=== PATIENT | male | born 1950 | race Caucasian/White ===

== ENCOUNTER 2016-08-04 16:28 | Emergency (ER) | payer BC ==
[~2016-08-04] VITALS: Ht 180.3 cm; Wt 111.4 kg
[2016-08-04 16:30] VITALS: BP 151/88; TEMP 97.9
[2016-08-04] MEDS ORDERED: OMEGA-3 1000 MG1 CAP PO (17:46)
[2016-08-04] MEDS ORDERED: BLOOD PRESSURE (17:46)
[2016-08-04] MEDS ORDERED: CEPHALEXIN500 M1 PO (19:13)
[2016-08-04 19:23] VITALS: PULSE 76
== END 2016-08-04 19:23 | disposition home or self-care (01) ==
LOC: COL.ER 16:28 → EDBD 16:39 → COL.ER 16:39
DX: S61.210A Laceration without foreign body of right index finger without damage to nail, initial encounter (principal); W45.8XXA Other foreign body or object entering through skin, initial encounter; W22.8XXA Striking against or struck by other objects, initial encounter

== ENCOUNTER 2016-08-11 09:38 | Emergency (ER) | payer BC ==
[~2016-08-11] VITALS: Ht 180.3 cm; Wt 109.1 kg
[~2016-08-11 09:38] MED LIST: BLOOD PRESSURE; CEPHALEXIN500 M1 PO; OMEGA-3 1000 MG1 CAP PO
[2016-08-11 09:57] VITALS: BP 160/92; PULSE 69; TEMP 98
== END 2016-08-11 10:43 | disposition home or self-care (01) ==
LOC: COL.ER 09:38
DX: S61.210D Laceration without foreign body of right index finger without damage to nail, subsequent encounter (principal); W45.8XXD Other foreign body or object entering through skin, subsequent encounter; I10 Essential (primary) hypertension

== ENCOUNTER → 2016-08-15 | Outpatient (CLI) | payer BC ==
[2016-08-15 09:21] VITALS: BP 125/72; PULSE 79; TEMP 98
== END ==
LOC: COL.ER 09:15
DX: Z48.02 Encounter for removal of sutures (principal)

== ENCOUNTER → 2019-04-07 | Outpatient (CLI) | payer MEDICARE, BC | LOC: COL.RAD 09:46 | DX: R51 Headache (principal) ==

== ENCOUNTER 2021-10-13 21:50 | Emergency (ER) | payer MEDICARE, BC ==
[~2021-10-13] VITALS: Ht 182.9 cm; Wt 118.2 kg
[2021-10-13 22:13] VITALS: TEMP 101.9
[2021-10-13 23:01] LABS: BASO # 0.1 K/mm3 (0.0-0.2); BASO % 0.6 % (0.0-2.0); EOS # 0.3 K/mm3 (0.0-0.7); EOS % 2.1 % (0.0-4.0); GRAN # 10.3 K/mm3 (1.4-6.5); GRAN % 80.8 % (42.2-75.2); HEMOGLOBIN 14.1 g/dl (13.5-18.0); LYMPH # 0.9 K/mm3 (1.2-3.4); LYMPH % 7.4 % (20.0-51.0); MEAN CELL VOLUME 90 fl (80.0-100.0); MEAN CORPUSCULAR HEMOGLOBIN 30 pg (27-31); MEAN CORPUSCULAR HGB CONC 34 g/dl (33.0-37.0); MONO # 1.1 K/mm3 (0.1-0.6); MONO % 8.7 % (1.7-9.3); PLATELET COUNT 300 K/mm3 (130-400); RED BLOOD COUNT 4.68 M/mm3 (4.20-5.60)
[2021-10-13 23:17] LABS: ALBUMIN 3.8 gm/dL (3.4-4.8); CREATININE, serum 1.03 mg/dL (0.72-1.25); POTASSIUM 4.1 mmol/L (3.5-4.5)
[2021-10-13 23:23] LABS: TROPONIN-I 0.013 ng/mL (0.00-0.033)
[2021-10-14] MEDS ORDERED: TESSALON P100 MG/CAP PO (00:29)
[2021-10-14 01:00] VITALS: BP 111/75; PULSE 90
== END 2021-10-14 01:00 | disposition home or self-care (01) ==
LOC: COL.ER 21:50
PROVIDERS: Nurse Practitioner
DX: U07.1 COVID-19 (principal); Z28.310 Unvaccinated for COVID-19

== ENCOUNTER 2021-10-19 13:55 | Inpatient (IN) | payer MEDICARE, BC ==
[~2021-10-19] VITALS: Ht 180.3 cm; Wt 121.3 kg
[~2021-10-19 13:55] MED LIST changes: +TESSALON P100 MG/CAP PO
[2021-10-19 14:30] LABS: BASO # 0.1 K/mm3 (0.0-0.2); BASO % 0.5 % (0.0-2.0); EOS # 0.3 K/mm3 (0.0-0.7); GRAN # 10.2 K/mm3 (1.4-6.5); GRAN % 79.6 % (42.2-75.2); HEMATOCRIT 37.7 % (42.0-52.0); HEMOGLOBIN 12.7 g/dl (13.5-18.0); LYMPH % 7.6 % (20.0-51.0); MEAN CELL VOLUME 88 fl (80.0-100.0); MEAN CORPUSCULAR HEMOGLOBIN 30 pg (27-31); MEAN CORPUSCULAR HGB CONC 34 g/dl (33.0-37.0); MEAN PLATELET VOLUME 10.3 fl (7.4-10.4); MONO # 1.2 K/mm3 (0.1-0.6); MONO % 9.4 % (1.7-9.3); PLATELET COUNT 407 K/mm3 (130-400); RED BLOOD COUNT 4.28 M/mm3 (4.20-5.60); REDCELL DISTRIBUTION WIDTH-CV 13.3 % (11.5-14.5)
[2021-10-19 14:49] LABS: ALBUMIN 2.7 gm/dL (3.4-4.8); BILIRUBIN,TOTAL 1.7 mg/dL (0.2-1.2); CREATININE, serum 1.14 mg/dL (0.72-1.25); POTASSIUM 3.6 mmol/L (3.5-4.5); TOTAL PROTEIN 6.9 gm/dL (6.2-8.1)
[2021-10-19 20:00] VITALS: BP 146/84; PULSE 84; TEMP 97.5
[2021-10-19 21:20] VITALS: BP 134/59; PULSE 85; TEMP 98.2
[2021-10-20 00:09] VITALS: BP 129/76; PULSE 82; TEMP 98.1
[2021-10-20 03:41] VITALS: BP 137/72; PULSE 79; TEMP 97.7
--- NOTE | 2021-10-20 05:00 | NUR ---
ASSESSMENT COMPLETE FOR THIS SHIFT. PT RESTING IN BED TALKING TO FAMILY OVER THE PHONE. PT COMPLAINED OF A BAD COUGH. PT REQUESTED ROBITUSSIN. HOSPITALIST CALLED WITH REQUEST. ROBITUSSIN ORDERED AND GIVEN. PT FELT THE ROBITUSSIN HELPED. PT DENIED CHEST PAIN, PALPITATIONS, N,V,D, SOB OR DIZZINESS. PT EXPRESSED NO OTHER NEEDS AT THIS TIME. CALL LIGHT WITHIN REACH.
[2021-10-20 08:00] VITALS: BP 129/59; PULSE 81; TEMP 98.2
[2021-10-20 11:30] VITALS: BP 132/62; PULSE 80; TEMP 98
--- NOTE | 2021-10-20 13:47 | NUR ---
JUST BACK FROM BATHROOM. 85% SPO2. DIDNT WEAR O2 TO BATHROOM
[2021-10-20 16:00] VITALS: BP 123/54; PULSE 79; TEMP 98.7
--- NOTE | 2021-10-20 17:38 | NUR ---
PATIENT ARRIVED TO FLOOR FROM ICU DEPT. CURRENTLY ON 3L O2 NC, SATS 80-85%. FAMILY IS STILL DISCUSSING TRANSITION TO COMFORT MEASURES. SOME HAVE BEEN INITIATED. PATIENT WILL AROUSE WHEN NAME IS SPOKEN. NOT ORIENTED FULLY. NO COMPLAINTS OF PAIN AT THIS TIME. REILLY IN PLACE. POOR APPETITE. POOR FLUID INTAKE. LOCK CORNER MACHINE OPERATOR WORKING WITH PATIENT AND FAMILY ON DECISON MAKING PROGNOSIS IS TERMINAL. WILL MONITOR PATIENT AND KEEP HIM COMFORTABLE.
[2021-10-20 20:28] VITALS: BP 125/55; PULSE 79; TEMP 98.2
[2021-10-21 00:16] VITALS: BP 115/60; PULSE 68; TEMP 98.2
[2021-10-21 04:11] VITALS: BP 110/47; PULSE 69; TEMP 98.5
--- NOTE | 2021-10-21 04:48 | NUR ---
ASSESSMENT COMPLETE FOR THIS SHIFT. PT RESTING IN BED ON THE PHONE WITH HIS . PT DENIED GENERAL PAIN, CHEST PAIN, PALPITATIONS, N,V,D, SOB OR DIZZINESS. AT PT'S 0400HRS VS, PT'S O2 SATS WERE FOUND TO BE 86%. PT TOLD TO TAKE SOME DEEP BREATHS. PT ABOVE 90% AFTER SEVERAL MINUTES. PT PLACED ON 3L O2 (FROM 2L). RT CALLED. RT CAME UP TO ASSESS PT. PT'S O2 UP TO 96%. WILL CONTINUE TO MONITOR. PT EXPRESSED NO OTHER NEEDS AT THIS TIME. CALL LIGHT WITHIN REACH.
[2021-10-21 06:26] LABS: HEMOGLOBIN 11.2 g/dl (13.5-18.0); MEAN CELL VOLUME 91 fl (80.0-100.0); MEAN CORPUSCULAR HEMOGLOBIN 30 pg (27-31); MEAN CORPUSCULAR HGB CONC 33 g/dl (33.0-37.0); MEAN PLATELET VOLUME 10.8 fl (7.4-10.4); PLATELET COUNT 406 K/mm3 (130-400); REDCELL DISTRIBUTION WIDTH-CV 13.2 % (11.5-14.5)
[2021-10-21 06:41] LABS: ALBUMIN 2.4 gm/dL (3.4-4.8); BILIRUBIN,TOTAL 0.5 mg/dL (0.2-1.2); C-REACTIVE PROTEIN 10.35 mg/dL (0.00-0.50); CALCIUM 8.9 mg/dL (8.4-10.2); POTASSIUM 3.6 mmol/L (3.5-4.5)
[2021-10-21 06:46] LABS: HEMATOCRIT 33.8 % (42.0-52.0)
[2021-10-21 07:00] VITALS: BP 132/87; PULSE 82; TEMP 98.9
--- NOTE | 2021-10-21 07:14 | NUR ---
INCREASE IN WBC AND CRP THIS MORNING. INCREASE TO 3L IN O2 DEMANDS. WILL COMMUNICATE TO HOSPITALIST DURING ROUNDS. REMAINED AFEBRILE THROUGH THE NIGHT. STILL CONTINUES TO HAVE MODERATE COUGH, PATIENT STATES ROBITUSSIN HELPS A LITTLE BIT. COUGH IS MORE DRY THAN PRODUCTIVE. VITALS WNL AT THIS TIME.
[2021-10-21 07:39] LABS: BAND 4 % (0-10); LYMPHOCYTE 11 % (20.0-51.0); METAMYELOCYTE 1 % (0-0); NEUTROPHILS 82 % (42.0-75.2); PLATELET ESTIMATE INCREASED (NORMAL)
--- NOTE | 2021-10-21 10:56 | NUR ---
Supervisor Lending Activities contacted patient by room phone to discuss discharge planning. Patient lives in [place] with his significant other, Shoshana (ph#[phone]) and sees Dr. Woods for primary care. Patient obtains medications from [facility] with no difficulties and does not use any DME. Patient does not use home oxygen, but is currently on 3 liters. SW will continue to monitor. SW is independent with ADLS and plans to return home at time of discharge. PT recommending home. SW asked patient if he had completed DPOA-HC and patient stated "not yet". SW attempted to identify legal next of kin. Patient advised she is not , has no children, and his parents are . When asked about siblings, patient stated he doesn't care to list them. Discharge Plan: Home, may need home oxygen.
[2021-10-21 11:50] VITALS: BP 121/68; PULSE 80; TEMP 98.6
[2021-10-21 20:15] VITALS: BP 148/62; PULSE 89; TEMP 98.5
[2021-10-22 00:24] VITALS: BP 129/57; PULSE 80; TEMP 98.4
[2021-10-22 04:50] VITALS: BP 149/83; PULSE 84; TEMP 99.9
--- NOTE | 2021-10-22 06:05 | NUR ---
ASSESSMENT COMPLETE FOR THIS SHIFT. PT SITTING ON THE SIDE OF THE BED, TALKING ON THE PHONE WITH HIS , WHILE WATCHING THE FIRE WORKS. PT DENIED GENERAL PAIN, CHEST PAIN, PALPITATIONS, N,V,D, SOB OR DIZZINESS. PT'S IV RESTARTED TO LEFT HAND. PT HAD A LOW GRADE FEVER (99.9). PT GIVEN TYLENOL FOR FEVER. PT EXPRESSED NO OTHER NEEDS AT THIS TIME. CALL LIGHT WITHIN REACH.
[2021-10-22 06:34] LABS: CALCIUM 8.3 mg/dL (8.4-10.2); CREATININE, serum 0.96 mg/dL (0.72-1.25); POTASSIUM 3.5 mmol/L (3.5-4.5)
[2021-10-22 06:38] LABS: HEMOGLOBIN 11.8 g/dl (13.5-18.0); MEAN CELL VOLUME 90 fl (80.0-100.0); MEAN CORPUSCULAR HEMOGLOBIN 30 pg (27-31); MEAN CORPUSCULAR HGB CONC 34 g/dl (33.0-37.0); MEAN PLATELET VOLUME 10.5 fl (7.4-10.4); PLATELET COUNT 437 K/mm3 (130-400); REDCELL DISTRIBUTION WIDTH-CV 13.5 % (11.5-14.5)
[2021-10-22 06:41] LABS: HEMATOCRIT 34.9 % (42.0-52.0)
[2021-10-22 08:00] VITALS: BP 145/55; PULSE 84; TEMP 99.2
[2021-10-22 08:19] LABS: BAND 2 % (0-10); EOSINOPHIL 3 % (0-4); LYMPHOCYTE 10 % (20.0-51.0); METAMYELOCYTE 1 % (0-0); NEUTROPHILS 81 % (42.0-75.2)
[2021-10-22 08:21] LABS: PLATELET ESTIMATE NORMAL (NORMAL)
--- NOTE | 2021-10-22 17:47 | NUR ---
PATIENT CONTINUES TO REQUIRE 2-3L O2 VIA NC. DOES HAVE DYSPNEA WITH EXERTION. CONTINUES ON ANTIBIOTICS AND ANTIBODY TX PER ORDERS. TOLERATING ALL MEDS WELL. GOOD APPETITE AND FLUID INTAKE. INDEPENDENT IN ROOM, ENCOURAGED TO ASK FOR ASSIST. CONTINENT OF B/B. CAN DO ADLS ON OWN. AFEBRILE. SATS 92-96% ON O2.
[2021-10-22 20:58] VITALS: BP 148/61; PULSE 79; TEMP 98
[2021-10-23 00:13] VITALS: BP 123/57; PULSE 71; TEMP 98.5
--- NOTE | 2021-10-23 01:50 | NUR ---
PT LAYING IN BED RESTING QUIETLY. PT DENIES ANY PAIN AT THIS TIME. PT ENDORSES NON-PRODUCTIVE NAGGED COUGH.
[2021-10-23 04:33] VITALS: BP 110/63; PULSE 86; TEMP 98.4
[2021-10-23 06:57] LABS: ALBUMIN 2.4 gm/dL (3.4-4.8); BILIRUBIN,DIRECT 0.3 mg/dL (0.0-0.5); BILIRUBIN,TOTAL 0.5 mg/dL (0.2-1.2); TOTAL PROTEIN 5.8 gm/dL (6.2-8.1)
[2021-10-23 08:03] VITALS: BP 151/55; PULSE 88; TEMP 98.3
--- NOTE | 2021-10-23 11:38 | NUR ---
Scheduled medications given. Shift assessment preformed. Patient currently requiring 1L of O2 via nasal cannula. Dyspnea upon exertion noted. Patient denies any pain, discomfort, SOA, or further needs at this time. Call light in reach. VSS. Patient A&O.
[2021-10-23 12:02] VITALS: BP 103/47; PULSE 80; TEMP 97.6
[2021-10-23 16:46] VITALS: BP 154/60; PULSE 80; TEMP 98.3
--- NOTE | 2021-10-23 19:06 | NUR ---
Patient has had an uneventful day. Patient currently requiring 1L of O2 via nasal cannula. Dyspnea upon exertion noted. Patient denies any pain, discomfort, SOA, or further needs at this time. Call light in reach.
[2021-10-23 19:39] VITALS: BP 146/70; PULSE 81; TEMP 98.3
[2021-10-24 00:07] VITALS: BP 119/64; PULSE 76; TEMP 98.2
--- NOTE | 2021-10-24 01:13 | NUR ---
PATIENT ADMITED TO THE UNIT WAS ACOMPANIED BY ER staff, with c/o malaise, pt refusing to be attended to in the unit,stats she wants to be seen only by the doctor,refuses TELE, REFUSES TO ANSWER QUESTIONS and to be assessed by nurses. physcian christian education director notified .
[2021-10-24 03:41] VITALS: BP 147/58; PULSE 73; TEMP 98.2
[2021-10-24 03:51] LABS: COLLECTION METHOD CLEAN CATCH
[2021-10-24 03:59] LABS: PH 6 (5-8); SQUAMOUS EPITHELIAL None Seen /hpf (0-10); URINE APPEARANCE Clear (CLEAR/HAZY); URINE BACTERIA None Seen /hpf (NONE SEEN); URINE BILIRUBIN Negative (NEGATIVE); URINE COLOR Yellow (YELLOW); URINE GLUCOSE Negative (NEGATIVE); URINE KETONE Negative (NEGATIVE); URINE NITRATE Negative (NEGATIVE); URINE PROTEIN(semi-quant) Negative (NEGATIVE); URINE RBC None Seen /hpf (0-2); URINE UROBILINOGEN Negative (NEGATIVE)
[2021-10-24 04:00] LABS: URINE BLOOD Negative (NEGATIVE); URINE LEUKOCYTE ESTERASE Negative (NEGATIVE)
--- NOTE | 2021-10-24 06:05 | NUR ---
PATIENT NIGHT WAS OKAY, ORIENT AND ALERT X4,VSS, ON O2 VIA NC,PT HAS A DRY COUGH,SPUTUM COLECTION PENDING., DUE MEDICATION ADMINISTERED.DENIES COMPLAINTS.
[2021-10-24 06:45] LABS: HEMOGLOBIN 11.5 g/dl (13.5-18.0); MEAN CELL VOLUME 90 fl (80.0-100.0); MEAN CORPUSCULAR HEMOGLOBIN 30 pg (27-31); MEAN CORPUSCULAR HGB CONC 33 g/dl (33.0-37.0); MEAN PLATELET VOLUME 10.4 fl (7.4-10.4); PLATELET COUNT 445 K/mm3 (130-400); RED BLOOD COUNT 3.85 M/mm3 (4.20-5.60); REDCELL DISTRIBUTION WIDTH-CV 13.4 % (11.5-14.5)
[2021-10-24 06:47] LABS: HEMATOCRIT 34.8 % (42.0-52.0)
[2021-10-24 07:11] LABS: ALBUMIN 2.4 gm/dL (3.4-4.8); BILIRUBIN,DIRECT 0.2 mg/dL (0.0-0.5); BILIRUBIN,TOTAL 0.4 mg/dL (0.2-1.2); CALCIUM 8.4 mg/dL (8.4-10.2); CREATININE, serum 0.83 mg/dL (0.72-1.25); POTASSIUM 3.9 mmol/L (3.5-4.5); TOTAL PROTEIN 5.3 gm/dL (6.2-8.1)
[2021-10-24 07:50] VITALS: BP 142/81; PULSE 73; TEMP 98.1
[2021-10-24] MEDS ORDERED: DECADRON6 MG PO (08:45)
[2021-10-24] MEDS ORDERED: DOXYCYCLINE 10100 MG PO (08:46)
[2021-10-24] MEDS ORDERED: RT Albuterol HFA MDI IH (08:46)
[2021-10-24] MEDS ORDERED: PROAIR HFA0.09 MG/AC IH (08:47)
[2021-10-24] MEDS ORDERED: ZESTRIL 20MG TA20 MG PO (08:48)
[2021-10-24] MEDS ORDERED: LIPITOR20 MG PO (08:48)
--- NOTE | 2021-10-24 09:14 | NUR ---
PT TOLERATED WALK ON ROOM AIR WELL, PT DOES NOT REQUIRE OXYGEN WITH AMBULATION
--- NOTE | 2021-10-24 09:41 | NUR ---
Notified by RT that the patient does not need oxygen going home. Patient contacted via room phone and [email or web address] read aloud to him due to being Covid positive. Patient verbalizes his understanding and agreement with discharge plan of going home today. Verbal consent obtained from the patient via phone. Original placed in the chart. Discharge plan: Home
[2021-10-24 09:56] LABS: BAND 8 % (0-10); EOSINOPHIL 2 % (0-4); LYMPHOCYTE 8 % (20.0-51.0); METAMYELOCYTE 7 % (0-0); NEUTROPHILS 73 % (42.0-75.2); PLATELET ESTIMATE INCREASED (NORMAL)
--- NOTE | 2021-10-24 10:37 | NUR ---
Scheduled medications given. Shift assessment preformed. Currently on RA. Dyspnea upon exertion noted. Patient denies any pain, discomfort, SOA, or further needs at this time. Call light in reach.
--- NOTE | 2021-10-24 11:23 | NUR ---
Patient deemed fit for discharge. IV DC'd, catheter intact, no signs of phlebitis. Discharge education/instructions given. All questions answered. Patient denies any pain, discomfort, SOA, or further needs at this time. Patient ambulated from building escorted by [facility] Staff. transporting home.
== END 2021-10-24 11:30 | disposition home or self-care (01) | DRG 177 ==
LOC: COL.ER 13:55 → MEDICAL 14:48
PROVIDERS: Emergency Medicine; Physician Assistant; Student in an Organized Health Care Education/Training Program; ADMIT Internal Medicine
PROC: XW033E5 Introduction of Remdesivir Anti-infective into Peripheral Vein, Percutaneous Approach, New Technology Group 5 (ICD-10-PCS; principal; 2021-10-20)
DX: U07.1 COVID-19 (principal); J12.82 Pneumonia due to coronavirus disease 2019; J96.01 Acute respiratory failure with hypoxia; E78.5 Hyperlipidemia, unspecified; D72.829 Elevated white blood cell count, unspecified; I10 Essential (primary) hypertension; T38.0X5A Adverse effect of glucocorticoids and synthetic analogues, initial encounter; Y92.238 Other place in hospital as the place of occurrence of the external cause; Z98.52 Vasectomy status; Z72.89 Other problems related to lifestyle; Y92.89 Other specified places as the place of occurrence of the external cause; Z23 Encounter for immunization
CPT/HCPCS: J0248; J0696; J1650; J7050; J7512; J8540

== ENCOUNTER → 2021-11-18 | Outpatient (CLI) | payer MEDICARE, BC ==
[~2021-11-18] MED LIST changes: +DECADRON6 MG PO; +DOXYCYCLINE 10100 MG PO; +LIPITOR20 MG PO; +PROAIR HFA0.09 MG/AC IH; +RT Albuterol HFA MDI IH; +ZESTRIL 20MG TA20 MG PO
== END ==
LOC: COL.RAD 12:32
DX: R05.3 Chronic cough (principal)

== ENCOUNTER 2023-05-12 17:51 | Emergency (ER) | payer MEDICARE, BC ==
[~2023-05-12] VITALS: Ht 180.3 cm; Wt 125.0 kg
[2023-05-12 18:06] VITALS: TEMP 97.9
[2023-05-12 18:38] LABS: HEMATOCRIT 48.5 % (42.0-52.0); HEMOGLOBIN 16.4 g/dl (13.5-18.0); MEAN CELL VOLUME 90 fl (80.0-100.0); MEAN CORPUSCULAR HEMOGLOBIN 31 pg (27-31); MEAN CORPUSCULAR HGB CONC 34 g/dl (33.0-37.0); MEAN PLATELET VOLUME 10.1 fl (7.4-10.4); PLATELET COUNT 354 K/mm3 (130-400); RED BLOOD COUNT 5.37 M/mm3 (4.20-5.60); REDCELL DISTRIBUTION WIDTH-CV 12.8 % (11.5-14.5)
[2023-05-12] MEDS ORDERED: NS 1,000 ML IV ONE (18:45)
[2023-05-12] MEDS ORDERED: Ondansetron 4 MG/2 ML VIAL IV ONE (18:45)
[2023-05-12 18:52] LABS: BILIRUBIN,TOTAL 1.6 mg/dL (0.2-1.2); C-REACTIVE PROTEIN 0.42 mg/dL (0.00-0.50); CALCIUM 9.2 mg/dL (8.4-10.2); CREATININE, serum 1.24 mg/dL (0.72-1.25); POTASSIUM 4.2 mmol/L (3.5-4.5); TOTAL PROTEIN 6.9 gm/dL (6.2-8.1)
[2023-05-12 19:08] LABS: BAND 1 % (0-10); EOSINOPHIL 1 % (0-4); LYMPHOCYTE 2 % (20.0-51.0); NEUTROPHILS 90 % (42.0-75.2); PLATELET ESTIMATE NORMAL (NORMAL); TOXIC GRANULATION PRESENT
[2023-05-12 20:39] LABS: COLLECTION METHOD CLEAN CATCH
[2023-05-12 21:07] LABS: AMORPHOUS CRYSTAL Present (NOT PRESENT); SQUAMOUS EPITHELIAL 0-2 /hpf (0-10); URINE APPEARANCE Clear (CLEAR/HAZY); URINE BLOOD Negative (NEGATIVE); URINE COLOR Amber (YELLOW); URINE GLUCOSE Negative (NEGATIVE); URINE KETONE 1+ (NEGATIVE); URINE NITRATE Negative (NEGATIVE); URINE PROTEIN(semi-quant) Negative (NEGATIVE); URINE RBC 0-2 /hpf (0-2)
[2023-05-12] MEDS ORDERED: Iohexol 300 - 100 ML VIAL IV ONE (21:10)
[2023-05-12] MEDS ORDERED: NS 60 ML IV ONE (21:11)
[2023-05-12] MEDS ORDERED: ZOFRAN ODT4 MG PO (22:24)
[2023-05-12] MEDS ORDERED: Home Ondansetron ODT 4 MG #2 ODT/PACK PO ONE (22:30)
[2023-05-12 22:37] VITALS: BP 138/71; PULSE 91
== END 2023-05-12 22:41 | disposition home or self-care (01) ==
LOC: COL.ER 17:51
PROVIDERS: Nurse Practitioner
DX: R11.2 Nausea with vomiting, unspecified (principal); R19.7 Diarrhea, unspecified
CPT/HCPCS: J2405; J7030; Q9967